=== PATIENT | male | born 1985 | race Caucasian/White ===

== ENCOUNTER 2018-02-10 19:51 | Emergency (ER) | payer SELFPAY ==
[~2018-02-10] VITALS: Ht 172.7 cm; Wt 69.4 kg
[2018-02-10 20:23] VITALS: BP 123/61
[2018-02-10 20:28] VITALS: BP 123/61
--- NOTE | 2018-02-10 20:28 | NUR ---
TO LOBBY A/W BED, ANKUR CASTAÑEDA NOTED
--- NOTE | 2018-02-10 22:52 | NUR ---
1ST CALL N/A IN ER LOBBY
--- NOTE | 2018-02-10 23:08 | NUR ---
3RD CALLER LOBBY N/A
== END 2018-02-10 22:52 | disposition left against medical advice (07) ==
LOC: MED 19:51
DX: M79.89 Other specified soft tissue disorders (principal); Z53.21 Procedure and treatment not carried out due to patient leaving prior to being seen by health care provider